=== PATIENT | male | born 1945 | race Caucasian/White ===

== ENCOUNTER 2020-11-21 13:25 | Outpatient (CLI) | payer MEDICARE, OTHER, SELFPAY ==
--- NOTE | ~2020-11-21 | XR_ITS ---
EXAMINATION: XR chest 2V DATE: 11/21/2020 13:47 INDICATION: Cough. TECHNIQUE: Frontal and lateral views of the chest were obtained. COMPARISON: Chest single view 01/23/2012, chest CT 06/29/2016 FINDINGS: The chest demonstrates clear lungs without pneumonia, pleural effusion, or pneumothorax. Th e heart size is normal. IMPRESSION: 1. No acute cardiopulmonary disease. Reviewed, dictated and finalized at location A.
== END 2020-11-21 13:26 | disposition home or self-care (01) ==
PROVIDERS: PCP Family Medicine; Visit Provider Family Medicine
DX: R05 Cough (principal)
CPT/HCPCS: 71046

== ENCOUNTER 2022-04-09 12:19 | Outpatient (CLI) | payer MEDICARE, OTHER, SELFPAY ==
[2022-04-09 13:15] LABS: Anion Gap 11 mmol/L (8-16); Blood Urea Nitrogen 21 mg/dL (9-20); Calcium 9.7 mg/dL (8.4-10.2); Carbon Dioxide 25 mmol/L (22-30); Chloride 105 mmol/L (98-107); Estimated Glomerular Filt Rate 49; Glucose 170 mg/dL (65-110); Potassium 4.3 mmol/L (3.4-5.0); Sodium 141 mmol/L (137-145)
== END 2022-04-09 12:20 | disposition home or self-care (01) ==
LOC: ANHSURGERY 12:29
PROVIDERS: Anesthesiology; PCP Family Medicine; Visit Provider Surgery
DX: Z01.812 Encounter for preprocedural laboratory examination (principal); Z51.81 Encounter for therapeutic drug level monitoring; Z79.899 Other long term (current) drug therapy; I10 Essential (primary) hypertension
CPT/HCPCS: 36415; 80048

== ENCOUNTER 2022-04-11 00:58 | Day surgery (SDC) | payer MEDICARE, OTHER, SELFPAY ==
[2022-04-05 09:26] VITALS: BMI 33.3
--- NOTE | 2022-04-05 09:27 | PCDIET ---
Report to the Outpatient Waiting Room, entrance under the green pavilion located off [facility], at time _0730_ on date _[id number]_. OR Time: _0930_. Time changes happen often and if your time is changed the preop area will call you the afternoon before. - You and your visitor will be asked to self-screen and do not enter if you have any COVID symptoms. - Only one visitor and NO children visitors are allowed at this time. - The patient visitor is requested to leave or wait in car when not with patient due to restrictions. - A mask is required within the hospital. Patients may have clear liquids (water, carbonated beverages, clear teas, apple juice) until 3 hours prior to surgery with a maximum of 20 ounces. - No food from midnight until time of surgery Take the following medications with a SIP of water the morning of surgery: ____None Medications to discontinue per physician None Date to take last dose Please no make-up, nail czech, hairspray, perfume, deodorant, or body powder the day of surgery. No jewelry (including any body piercings) or valuables the day of surgery, leave them at home. Please take a shower or bath the morning of, surgery with Hebiclense, an antibacterial soap. Wear comfortable, loose fitting clothing. - Jewelry must be removed prior to entering the operating room. Rings and piercings that are not removed may be cut off. - The hospital will not accept responsibility for valuables. - Please leave all valuables, including medications, at home the day of surgery. If you are going home after surgery, a licensed o[employer] hazmat company driver must drive you home. - NO public transportation without another adult. - We recommend that an adult stay with you for 24 hours following discharge. - We also recommend that you do not drive, make important decision, drink alcoholic beverages, or take any drugs that were not prescribed by your health care provider for at least 24 hours after your discharge time. Follow any additional instructions given to you from your surgeon. If you or anyone in your household have experienced Covid symptoms in the past week, please notify your surgeon or the nurse liaison at the phone number below for possible testing. Telephone instructions given to __Patient and asked if any additional questions and then verbalized understanding. Patient advised to call surgeon office or pre surgery nurse liaison [phone] if any additional questions.
--- NOTE | 2022-04-06 13:28 | PC.NURSE ---
Report to the Outpatient Waiting Room, entrance under the green pavilion located off [facility], at time _0730_ on date _[id number]_. OR Time: _0930_. Time changes happen often and if your time is changed the preop area will call you the afternoon before. - You and your visitor will be asked to self-screen and do not enter if you have any COVID symptoms. - Only one visitor and NO children visitors are allowed at this time. - The patient visitor is requested to leave or wait in car when not with patient due to restrictions. - A mask is required within the hospital. Patients may have clear liquids (water, carbonated beverages, clear teas, apple juice) until 3 hours prior to surgery with a maximum of 20 ounces. - No food from midnight until time of surgery Take the following medications with a SIP of water the morning of surgery: None Medications to discontinue per physician ___None Date to take last dose Please no make-up, nail lithuanian, hairspray, perfume, deodorant, or body powder the day of surgery. No jewelry (including any body piercings) or valuables the day of surgery, leave them at home. Please take a shower or bath the morning of, surgery with Hebiclense, an antibacterial soap. Wear comfortable, loose fitting clothing. - Jewelry must be removed prior to entering the operating room. Rings and piercings that are not removed may be cut off. - The hospital will not accept responsibility for valuables. - Please leave all valuables, including medications, at home the day of surgery. If you are going home after surgery, a licensed bus driver supervisor must drive you home. - NO public transportation without another adult. - We recommend that an adult stay with you for 24 hours following discharge. - We also recommend that you do not drive, make important decision, drink alcoholic beverages, or take any drugs that were not prescribed by your health care provider for at least 24 hours after your discharge time. Follow any additional instructions given to you from your surgeon. If you or anyone in your household have experienced Covid symptoms in the past week, please notify your surgeon or the nurse liaison at the phone number below for possible testing. Telephone instructions given to _Patient and asked if any additional questions and then verbalized understanding. Patient advised to call surgeon office or pre surgery nurse liaison [phone] if any additional questions.
--- NOTE | 2022-04-10 12:09 | WPDANESEPPF ---
Anes - Initial Pre Proc Eval Procedure: Operation Date: 04/11/22 09:30 Proposed Procedures p Right Inguinal Hernia Repair - Oziel Mcmanus MD Date/Time: 04/10/22 12:09 Surgeon: Oziel Mcmanus MD Pre Op Diagnosis: right inguinal hernia Patient Data Age: 76 Gender: M Height: 1.83 m Weight: 111.4 kg Allergies Allergy/AdvReac Type Severity Reaction Status Date / Time hydrochlorothiazide Allergy Severe Other Verified 04/11/22 07:42 esomeprazole Allergy Unknown Contraindicated Verified 04/11/22 07:42 with Plavix metoprolol Allergy Unknown Unknown Verified 04/11/22 07:42 Home Medications Medication Instructions Recorded Confirmed Type aspirin 325 mg tablet 325 mg PO DAILY 12/08/19 04/11/22 History atorvastatin 40 mg tablet 40 mg PO DAILY 12/08/19 04/11/22 History carvedilol 6.25 mg tablet 6.25 mg PO Q12H 12/08/19 04/11/22 History lisinopril 10 mg tablet 10 mg PO DAILY 12/08/19 04/11/22 History nitroglycerin 0.4 mg sublingual 0.4 mg sublingual Q5M PRN Chest 12/08/19 04/11/22 History tablet Pain sildenafil 25 mg tablet (Viagra) 25 mg PO DAILY PRN Sexual Activity 12/08/19 04/11/22 History spironolactone 25 mg tablet 25 mg PO DAILY 12/08/19 04/11/22 History tramadol 50 mg tablet 50 mg PO Q6H PRN Pain 12/08/19 04/11/22 History cyclobenzaprine 10 mg tablet 10 mg PO TID PRN muscle spasm #30 01/29/22 04/11/22 Rx tabs cholecalciferol (vitamin D3) 25 25 mcg PO DAILY 04/05/22 04/11/22 History mcg (1,000 unit) capsule (Vitamin D3) zinc 10 mg tablet 10 mg PO DAILY 04/05/22 04/11/22 History Patient hx anesthesia problems: none Family hx anesthesia problems: none Results Review: All pre-operative results and documents have been reviewed as part of the pre-operative evaluation. 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 IFG (impaired fasting glucose) Skin cancer Surgical History Surgical History H/O heart artery stent H/O hernia repair 2001 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 Family History Family History Father Family history of lung cancer Diabetes mellitus Hypertension Family history of cardiovascular disease Mother Family history of primary malignant neoplasm of liver Family history of malignant neoplasm Social History Social History Smoking packs per day: 1 Smoking cigarettes per day: 20.0 Years smoked: 10 Smoking pack-years: 10.00 Smoking status: Former smoker Tobacco type: cigarettes Second hand tobacco smoke exposure: No Smoking end date: 04/05/72 Alcohol intake: former Substance use: never Substance use type: does not use Living arrangements: alone Spiritual care concerns: No Anes - Eval Final PreProcedure Day of Procedure 04/10/22 12:09 Patient weight: obese Heart: regular rate and rhythm Lungs: clear to auscultation and normal air movement Airway: Mallampati scale class II Neurological: alert and oriented Last oral intake: >/= 8 hours ASA classification: III Emergent: no Anesthetic plan: proceed Anesthesia type and monitoring: general GIVS and LMA Results Review: All pre-operative results and documents have been reviewed as part of the pre-operative evaluation. Informed Consent: The patient's anesthetic plan and its attendant risks and benefits were d
--- NOTE | 2022-04-10 16:48 | PM.SD2 ---
Same Day Admit/Disch: HPI History of Present Illness Chief complaint: right inguinal hernia Narrative: Lobo Hicks is a 76 year old male who was seen in the office with complaints of left lower quadrant abdominal pain. He had a history of a previous left inguinal hernia repair. When he was examined in the office, he had no left inguinal hernia but did have a reducible right inguinal hernia. He also had a very small umbilical hernia. After discussion, the patient wishes to proceed with right inguinal hernia repair. He is not interested in umbilical hernia repair at this time. No left-sided hernia or other source of his left lower quadrant pain was noted. 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 IFG (impaired fasting glucose) Skin cancer Surgical History Surgical History H/O heart artery stent H/O hernia repair 2001 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 Family History Family History Father Family history of lung cancer Diabetes mellitus Hypertension Family history of cardiovascular disease Mother Family history of primary malignant neoplasm of liver Family history of malignant neoplasm Social History Social History Smoking packs per day: 1 Smoking cigarettes per day: 20.0 Years smoked: 10 Smoking pack-years: 10.00 Smoking status: Former smoker Tobacco type: cigarettes Second hand tobacco smoke exposure: No Smoking end date: 04/05/72 Alcohol intake: former Substance use: never Substance use type: does not use Living arrangements: alone Spiritual care concerns: No Same Day Admit/Disch: Med Pre-admit Medications Home Medications Medication Instructions Recorded Confirmed Type aspirin 325 mg tablet 325 mg PO DAILY 12/08/19 04/11/22 History atorvastatin 40 mg tablet 40 mg PO DAILY 12/08/19 04/11/22 History carvedilol 6.25 mg tablet 6.25 mg PO Q12H 12/08/19 04/11/22 History lisinopril 10 mg tablet 10 mg PO DAILY 12/08/19 04/11/22 History nitroglycerin 0.4 mg sublingual 0.4 mg sublingual Q5M PRN Chest 12/08/19 04/11/22 History tablet Pain sildenafil 25 mg tablet (Viagra) 25 mg PO DAILY PRN Sexual Activity 12/08/19 04/11/22 History spironolactone 25 mg tablet 25 mg PO DAILY 12/08/19 04/11/22 History tramadol 50 mg tablet 50 mg PO Q6H PRN Pain 12/08/19 04/11/22 History cyclobenzaprine 10 mg tablet 10 mg PO TID PRN muscle spasm #30 01/29/22 04/11/22 Rx tabs cholecalciferol (vitamin D3) 25 25 mcg PO DAILY 04/05/22 04/11/22 History mcg (1,000 unit) capsule (Vitamin D3) zinc 10 mg tablet 10 mg PO DAILY 04/05/22 04/11/22 History hydrocodone 5 mg-acetaminophen 325 1 - 2 tablet PO Q6H PRN pain #15 04/11/22 Rx mg tablet tabs ibuprofen 600 mg tablet 600 mg PO Q6H PRN pain #14 tabs 04/11/22 Rx Exam Const: General: comfortable, no acute distress, alert and awake HENMT: Head: normocephalic and atraumatic Mouth: Yes Normal oral and palatal mucosa present Eyes: Conjunctivae: conjunctivae normal Pupils: Equal, round and reactive pupils present EOM: EOMs intact bilaterally Neck: Neck: normal visual inspection, no lymphadenopathy and nontender Resp: Effort & Inspection: normal respiratory effort Auscultation: clear to auscultation bilaterally Cardio: Rate: regular rate Rhythm: regular rhyt
--- NOTE | 2022-04-11 07:51 | WPDHPUPDATE1 ---
History and Physical Update Update Date/Time: 04/11/22 07:51 History and Physical has been reviewed, including an updated exam of the patient. There are NO changes in the patient's condition. Risks, benefits, and alternatives have been discussed and questions answered. Patient agrees to proceed with procedure.
[2022-04-11 07:52] VITALS: BP 152/82; PULSE 77; RESP 16; TEMP 36.6; O2SAT 97
[2022-04-11] MEDS: LACTATED RINGERS 1,000 ML 30 ML IV CONT ×3 (08:00→12:09)
[2022-04-11] MEDS: ACETAMINOPHEN 500 MG TABLET 1000 MG PO (08:07)
[2022-04-11] MEDS: KETOROLAC 15 MG/ML VIAL (*BKC) IV PUSH (08:11)
[2022-04-11] MEDS: ceFAZolin 2 GM/D5W 50 ML 2 GM/50 ML BAG IVPB (09:41)
[2022-04-11] MEDS: BUPIVACAINE/EPINEPHRINE 0.25% 50 ML VIAL INFILTRATE (10:58)
[2022-04-11 11:15] VITALS: BP 131/72; PULSE 80; RESP 16; O2SAT 98
[2022-04-11 11:18] LABS: Glucose Point of Care 132 mg/dl (65-105)
--- NOTE | 2022-04-11 11:26 | W.PM.PROC2 ---
Procedure Note - Detailed Date of Procedure 04/11/22 Pre-op Diagnosis right inguinal hernia Post-op Diagnosis Same Procedure Performed Right inguinal hernia repair with PerFix Light large plug and patch Surgeon Oziel Mcmanus MD Magazine Publisher Maggy OCONNOR Anesthesia General, Local (0.25% Marcaine with epinephrine) and Other (Xaracoll) Indications Patient was seen in the office for some left lower quadrant pain. He had a previous left inguinal hernia. His abdominal exam and left inguinal exam was negative. However he was incidentally found to have a right inguinal hernia. After discussion, he is taken to surgery now for right inguinal hernia repair. Findings Showed a medially located direct right inguinal hernia Description of Procedure The patient was taken to surgery and anesthesia was introduced. The right groin and genitalia were prepped and draped. The proposed incision was marked on the skin in the right inguinal region. Local was infiltrated into the skin and the deeper subcutaneous tissues. Incision was then made dissection carried down through the subcutaneous. Dissection was carried through Lamont's fascia and down to the external oblique aponeurosis. The aponeurosis was exposed as was the external ring. Additional local was infiltrated deep to the aponeurosis in the area of the inguinal canal and its contents. The aponeurosis was then opened laterally and extended medially through the external ring. The leaves of the aponeurosis were carefully dissected free from the inguinal canal contents. We then mobilized the cord medially on a Lutz drain. The cord was further mobilized back to the internal ring. Some lipomatous tissue was dissected free from the cord and discarded. I looked carefully in the spermatic cord area and no indirect hernia was found. There was a medially located fairly large direct hernia. This was carefully dissected free from the spermatic cord as well. I dissected around the direct hernia and exposed the neck of the hernia. I then used the cautery to score circumferentially around the neck of the hernia through the transversalis fascia. I then dunked the hernia into the retroperitoneum. A large PerFix Light plug was chosen. It was placed in the defect. The edges were sutured to the transversalis fascia in interrupted fashion with 3-0 Vicryl suture. I then closed the hernia defect as well with 3-0 Vicryl suture incorporating the mesh with the closure. The patch was then cut to the appropriate size and placed over the inguinal canal floor. The lateral leaves were passed beyond the cord. I placed a couple of suture medially to secure the mesh. These were 3-0 Vicryl suture as well. All looked good. I infiltrated additional local at this time. The 1st piece of Xaracoll was then laid over the patch. The cord and ilioinguinal nerve were then laid over the Xaracoll. The ilioinguinal nerve had been left attached to the cord and carefully preserved through the surgery. I then closed the external oblique aponeurosis with interrupted 3-0 Vicryl suture. A 2nd pieces Xaracoll was laid over the aponeurosis. Lamont's fascia was closed with interrupted 3-0 Vicryl suture. The last pieces Xaracoll was then placed in the subcutaneous. The skin was then closed with interrupted subcuticular 4-0 Vicryl skin suture. The wound was dressed with Exofin surgical adhesive. The patient was awakened and taken to recovery in good condition. Sponge and needle counts were correct x2. Estimated Blood Loss -5.0 Drains No Packing No Pathology None sent Complications No immediate complications Condition Stable Disposition Same day [facility] Billing Surgery - Charge Forward: Surgery Billing (Right inguinal hernia repair)
[2022-04-11 11:45] VITALS: BP 125/76; PULSE 66; RESP 16
[2022-04-11 12:15] VITALS: BP 121/67; PULSE 62; RESP 20
[2022-04-11 12:45] VITALS: BP 133/69; PULSE 61; RESP 20
[2022-04-11 13:15] VITALS: BP 141/72; PULSE 59; RESP 20
== END 2022-04-11 13:27 | disposition home or self-care (01) ==
PROVIDERS: PCP Family Medicine; Visit Provider Surgery
PROC: (CPT 49505; principal; 2022-04-11 09:30)
DX: K40.90 Unilateral inguinal hernia, without obstruction or gangrene, not specified as recurrent (principal); I25.10 Atherosclerotic heart disease of native coronary artery without angina pectoris; I13.10 Hypertensive heart 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, with stage 1 through stage 4 chronic kidney disease, or unspecified chronic kidney disease; E11.22 Type 2 diabetes mellitus with diabetic chronic kidney disease; N18.30 Chronic kidney disease, stage 3 unspecified; E78.5 Hyperlipidemia, unspecified; Z79.82 Long term (current) use of aspirin; Z95.5 Presence of coronary angioplasty implant and graft; Z87.891 Personal history of nicotine dependence; E66.9 Obesity, unspecified; Z68.33 Body mass index [BMI] 33.0-33.9, adult
CPT/HCPCS: 49505; 82948; A9270; C1781; J0690; J1885; J2704; J3010; J7120

== ENCOUNTER 2022-09-04 08:02 | Outpatient (CLI) | payer MEDICARE, OTHER, SELFPAY ==
--- NOTE | ~2022-09-04 | US_ITS ---
EXAMINATION: US aorta [facility] scr[facility] DATE: 09/04/2022 08:32 INDICATION: Encounter for screening for cardiovascular disorder. TECHNIQUE: Grayscale, color Doppler, and pulsed Doppler images of the aorta and common iliac arteries were obtained. COMPARISON: CT abdomen and pelvis 05/23/2014 FINDINGS: The aorta is normal in caliber. The right common iliac artery is normal in caliber. The left common i liac artery is normal in caliber. IMPRESSION: 1. No abdominal aortic aneurysm. Reviewed, dictated and finalized at location A. [employer] SUPERINTENDENT
== END 2022-09-04 08:03 | disposition home or self-care (01) ==
PROVIDERS: PCP Family Medicine; Visit Provider Family Medicine
DX: Z13.6 Encounter for screening for cardiovascular disorders (principal)
CPT/HCPCS: 76706

== ENCOUNTER 2022-12-05 11:08 | Emergency (ER) | payer MEDICARE, OTHER, SELFPAY ==
[2022-12-05] VITALS (18 sets, daily range): BP systolic 121–166; BP diastolic 68–81; PULSE 63–77; RESP 12–20; TEMP 36.8; O2SAT 94–99
--- NOTE | ~2022-12-05 | XR_ITS ---
EXAMINATION: XR chest 1V portable 12/05/2022 11:50 INDICATION: Chest pain PROCEDURE: AP portable chest COMPARISON: 11/21/2020 FINDINGS: The lungs are clear. Right costophrenic recess is excluded. The cardiomediastinal silhouett e is within normal limits. There are no pleural effusions. There is no pneumothorax suspected. IMPRESSION: 1: NO ACUTE CARDIOPULMONARY DISEASE. Reviewed, dictated and finalized at location B.
--- NOTE | 2022-12-05 11:09 | ECG_ITS ---
Measurements Intervals [place] Rate: 71 P: 23 GA: 210 QRS: -25 QRSD: 119 T: 69 QT: 360 QTc: 392 Interpretive Statements SINUS RHYTHM WITH FIRST DEGREE AV BLOCK INTRAVENTRICULAR CONDUCTION DELAY CANNOT RULE OUT SEPTAL INFARCT, AGE INDETERMINATE BORDERLINE ECG NO PREVIOUS ECG AVAILABLE FOR COMPARISON Electronically Signed On 12-05-2022 11:36:50 CDT by Fab Tripathi D.O.
[2022-12-05 11:25] LABS: Basophils Absolute Auto 0.1 K/mm3 (0.0-0.1); Basophils Percent Auto 0.8 % (0.2-1.2); Eosinophils Absolute Auto 0.2 K/mm3 (0-0.3); Eosinophils Percent Auto 2.9 % (0-4.4); Hematocrit 42.2 % (42.0-52.0); Hemoglobin 13.7 g/dL (14.0-18.0); Immature Granulocyte Absolute 0.01 K/mm3 (0.00-0.031); Immature Granulocyte Percent A 0.2 % (0-0.5); Lymphocytes Percent Auto 20.1 % (18.3-44.2); Mean Corpuscular HGB Conc 32.5 g/dl (32-36); Mean Corpuscular Volume 92.3 fl (80-100); Mean Platelet Volume 10.9 fl (7.4-10.4); Monocytes Absolute Auto 0.7 K/mm3 (0.1-0.6); Neutrophils Absolute Auto 4.2 K/mm3 (1.3-6.7); Platelet Count Result 233 k/mm3 (150-375); Red Blood Count 4.57 M/mm3 (4.6-6.20); Red Cell Distribution Width 13.2 % (11.5-14.5); White Blood Count 6.5 K/mm3 (4.5-10.0)
[2022-12-05 11:34] LABS: Prothrombin Time 13.7 Seconds (11.1-14.7)
[2022-12-05 11:36] LABS: Partial Thromboplastin Time 32.9 SECONDS (22.3-36.8)
[2022-12-05 11:38] LABS: Alanine Aminotransferase 38 U/L (6-50); Albumin Level 4.3 g/dL (3.5-5.1); Alkaline Phosphatase 72 U/L (38-126); Anion Gap 6 mmol/L (8-16); Aspartate Amino Transferase 33 U/L (17-59); Bilirubin,Total 0.6 mg/dL (0.2-1.3); Blood Urea Nitrogen 38 mg/dL (9-20); Carbon Dioxide 26 mmol/L (22-30); Chloride 105 mmol/L (98-107); Estimated Glomerular Filt Rate 45; Glucose 121 mg/dL (65-110); Lipase 77 U/L (23-300); Sodium 137 mmol/L (137-145)
[2022-12-05 11:49] LABS: Troponin I < 0.012 ng/mL (0.000-0.034)
--- NOTE | 2022-12-05 12:21 | ED.CHESTPAIN ---
HPI - Chest Pain General Chief Complaint: Chest Pain Stated Complaint: having a heart attack Time Seen by Provider: 12/05/22 12:01 History of Present Illness HPI narrative: Patient is a 77-year-old male with a history of CAD, hypertension, hyperlipidemia presenting with chest and shoulder pain. Patient states that since last night he has had right-sided chest pain that goes into his right shoulder, the right side of his neck, and his right arm. States that the chest pain is right over his right pec and is worsened with taking a big breath. States that is worsened with shoulder abduction. He also complains of right-sided neck soreness. Reports chronic dyspnea and intermittent paresthesias related to history of neuropathy. Denies lightheadedness, fevers or chills, weakness, speech or vision changes, palpitations, left-sided chest pain, abdominal pain, leg swelling, nausea or vomiting. Related Data Home Medications Medication Instructions Recorded Confirmed aspirin 325 mg tablet 325 mg PO DAILY 12/08/19 08/06/22 atorvastatin 40 mg tablet 40 mg PO DAILY 12/08/19 08/06/22 carvedilol 6.25 mg tablet 6.25 mg PO Q12H 12/08/19 08/06/22 nitroglycerin 0.4 mg sublingual 0.4 mg sublingual Q5M PRN Chest 12/08/19 08/06/22 tablet Pain spironolactone 25 mg tablet 25 mg PO DAILY 12/08/19 08/06/22 cholecalciferol (vitamin D3) 25 25 mcg PO DAILY 04/05/22 08/06/22 mcg (1,000 unit) capsule (Vitamin D3) zinc 10 mg tablet 10 mg PO DAILY 04/05/22 08/06/22 lisinopril 5 mg tablet 5 mg PO HS 05/30/22 08/06/22 Allergies Allergy/AdvReac Type Severity Reaction Status Date / Time hydrochlorothiazide Allergy Severe eye pain Verified 08/06/22 13:06 and blurred vision metoprolol Allergy Unknown Unknown Verified 08/06/22 13:06 esomeprazole AdvReac Unknown Contraindicated Verified 08/06/22 13:06 with Plavix Review of Systems Review of Systems: All systems reviewed & are unremarkable except as noted in HPI and below PMFSH Past Medical History Medical History Arthritis of left knee Atherosclerotic heart disease of [place] coronary artery without angina pectoris BMI 36.0-36.9,adult Cataract Chronic kidney disease, stage 3 unspecified Chronic kidney disease, stage III (moderate) CMC arthritis, thumb, degenerative Bilateral Coronary artery disease Diabetes pt noted last A1c was 6.8 Dyslipidemia Heart disease Hernia Hypertensive heart 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 IFG (impaired fasting glucose) Skin cancer Surgical History Surgical History H/O heart artery stent H/O hernia repair 2001 H/O right inguinal hernia repair 04/11/22 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 Family History Family History Father Family history of lung cancer Diabetes mellitus Hypertension Family history of cardiovascular disease Mother Family history of primary malignant neoplasm of liver Family history of malignant neoplasm Social History Social History Smoking packs per day: 1 Smoking cigarettes per day: 20.0 Years smoked: 8 Smoking pack-years: 8.00 Smoking status: Former smoker Tobacco type: cigarettes Second hand tobacco smoke exposure: No Smoking end date: 01/20/72 Alcohol intake: former Alcohol use details: 1968 Substance use: never Substance use type: does not use Living arrangements: alone Occupation/Education: retired Spiritual care concerns: No Exam Narrative: GENERAL: Well-appearing, well-nourished, and in no acute distress. HEAD: Normocephalic, atraumatic. EYES: PERRLA and EOMI. ENT: Nares clear, no rhinorrhea or epistaxis. Mucous membranes moist. NECK: Supple. No midline tenderness; +R sided paraspinal tenderness into R trap
[2022-12-05 14:23] LABS: Troponin I < 0.012 ng/mL (0.000-0.034)
== END 2022-12-05 15:00 | disposition home or self-care (01) ==
PROVIDERS: Emergency Medicine; Emergency Provider Emergency Medicine; PCP Specialist
DX: R07.89 Other chest pain (principal); M25.511 Pain in right shoulder; I13.10 Hypertensive heart 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, with stage 1 through stage 4 chronic kidney disease, or unspecified chronic kidney disease; E11.22 Type 2 diabetes mellitus with diabetic chronic kidney disease; N18.30 Chronic kidney disease, stage 3 unspecified; I25.10 Atherosclerotic heart disease of native coronary artery without angina pectoris; E78.5 Hyperlipidemia, unspecified; Z87.891 Personal history of nicotine dependence
CPT/HCPCS: 36415; 71045; 80053; 83690; 84484; 85025; 85610; 85730; 93005; 99284

== ENCOUNTER 2023-01-11 12:22 | Emergency (ER) | payer MEDICARE, OTHER, SELFPAY ==
--- NOTE | ~2023-01-11 | CT_ITS ---
EXAMINATION: CT abdomen pelvis wo con DATE: 01/11/2023 13:22 INDICATION: Generalized abdominal pain TECHNIQUE: Computed tomography (CT) of the abdomen and pelvis was performed without intravenous contr ast. The dose-length product was 1384.71 mGy-cm. Automated exposure control and iterative reconstruct ion technique were employed. COMPARISON: CT dated 05/23/2015. FINDINGS: There is dependent atelectasis. Stable 5 mm right lower lobe nodule, likely benign. Heart s ize normal. No significant pleural or pericardial effusion. Colonic diverticulosis without evidence f or diverticulitis. Small subcentimeter hypodensity of the liver, most likely benign. The spleen, pancreas are unremarkab le. 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 Gallbladder is present. There is a 1.4 cm low-density lesion of the left adrenal gland, also lik [place] benign adenoma. Nonobstructive bowel gas pattern. Small fat-containing umbilical hernia. The mode rate osteoarthritis of the hips. No free air or free fluid. IMPRESSION: 1. No acute abdominal abnormality. Reviewed, dictated and finalized at location []
[2023-01-11 12:23] VITALS: BP 145/81; PULSE 72; RESP 16; TEMP 36.5; O2SAT 97
--- NOTE | 2023-01-11 12:44 | ED.GIBLEED ---
HPI - GI Bleed General Chief complaint: GI Bleed Stated complaint: blood in stool Time Seen by Provider: 01/11/23 12:33 History of Present Illness HPI Narrative: 77-year-old male presents to the emergency room for complaints of rectal bleeding. He had 1 episode of red bloody stool yesterday evening. He took some bowel prep in anticipation of needing a colonoscopy. He had brown liquid stool this morning x1. No further bleeding. He has noticed a dark spot on his stools over the past couple of weeks. He denies having any abdominal pain. He says he called his primary care provider and they told him he should come to the ER for colonoscopy. He does report having a family history of colon cancer and is very worried about this. Last colonoscopy was 15 years ago. Related Data Home Medications Medication Instructions Recorded Confirmed aspirin 325 mg tablet 325 mg PO DAILY 12/08/19 08/06/22 atorvastatin 40 mg tablet 40 mg PO DAILY 12/08/19 08/06/22 carvedilol 6.25 mg tablet 6.25 mg PO Q12H 12/08/19 08/06/22 nitroglycerin 0.4 mg sublingual 0.4 mg sublingual Q5M PRN Chest 12/08/19 08/06/22 tablet Pain spironolactone 25 mg tablet 25 mg PO DAILY 12/08/19 08/06/22 cholecalciferol (vitamin D3) 25 25 mcg PO DAILY 04/05/22 08/06/22 mcg (1,000 unit) capsule (Vitamin D3) zinc 10 mg tablet 10 mg PO DAILY 04/05/22 08/06/22 lisinopril 5 mg tablet 5 mg PO HS 05/30/22 08/06/22 Allergies Allergy/AdvReac Type Severity Reaction Status Date / Time hydrochlorothiazide Allergy Severe eye pain Verified 08/06/22 13:06 and blurred vision metoprolol Allergy Unknown Unknown Verified 08/06/22 13:06 esomeprazole AdvReac Unknown Contraindicated Verified 08/06/22 13:06 with Plavix Review of Systems Review of Systems: CONSTITUTIONAL: Denies fever, chills, or sweats. EYES: Denies visual changes, redness, or discharge. ENT: Denies rhinorrhea, congestion, sore throat, or otalgia. CARDIOVASCULAR: Denies chest pain, palpitations, or edema. RESPIRATORY: Denies cough or dyspnea. GASTROINTESTINAL: as per HPI GENITOURINARY: Denies dysuria or hematuria. SKIN: Denies rash or itching. MUSCULOSKELETAL: Denies back pain, joint pain, or myalgia. NEUROLOGIC: Denies headache, numbness, dizziness, or weakness. PSYCHIATRIC: Denies anxiety or depression. 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 IFG (impaired fasting glucose) Skin cancer Surgical History Surgical History H/O heart artery stent H/O hernia repair 2001 H/O right inguinal hernia repair 04/11/22 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 Family History Family History Father Family history of lung cancer Diabetes mellitus Hypertension Family history of cardiovascular disease Mother Family history of primary malignant neoplasm of liver Family history of malignant neoplasm Social History Social History Smoking packs per day: 1 Smoking cigarettes per day: 20.0 Years smoked: 8 Smoking pack-years: 8.00 Smoking status: Former smoker Tobacco type: cigarettes Second hand tobacco smoke exposure: No Smoking end date: 01/20/72 Alcohol intake: former Alcohol use details: 1969 Substance use: never Substance use type: does not use Living arrangements: alone Occupation/Educatio
[2023-01-11 12:58] LABS: Basophils Percent Auto 0.5 % (0.2-1.2); Eosinophils Absolute Auto 0.2 K/mm3 (0-0.3); Eosinophils Percent Auto 2.4 % (0-4.4); Hematocrit 44.3 % (42.0-52.0); Hemoglobin 14.7 g/dL (14.0-18.0); Immature Granulocyte Absolute 0.01 K/mm3 (0.00-0.031); Immature Granulocyte Percent A 0.1 % (0-0.5); Lymphocytes Absolute Auto 1.25 K/mm3 (0.9-3.2); Lymphocytes Percent Auto 16.9 % (18.3-44.2); Mean Corpuscular HGB Conc 33.2 g/dl (32-36); Mean Corpuscular Hemoglobin 30.2 pg (26-34); Mean Corpuscular Volume 91.2 fl (80-100); Mean Platelet Volume 11.7 fl (7.4-10.4); Monocytes Absolute Auto 0.7 K/mm3 (0.1-0.6); Neutrophils Absolute Auto 5.2 K/mm3 (1.3-6.7); Neutrophils Percent Auto 70.1 % (45.5-73.1); Platelet Count Result 231 k/mm3 (150-375); Red Blood Count 4.86 M/mm3 (4.6-6.20); Red Cell Distribution Width 12.8 % (11.5-14.5); White Blood Count 7.4 K/mm3 (4.5-10.0)
[2023-01-11 13:11] LABS: Alanine Aminotransferase 52 U/L (6-50); Albumin Level 4.5 g/dL (3.5-5.1); Alkaline Phosphatase 79 U/L (38-126); Anion Gap 7 mmol/L (8-16); Aspartate Amino Transferase 35 U/L (17-59); Blood Urea Nitrogen 26 mg/dL (9-20); Calcium 9.9 mg/dL (8.4-10.2); Carbon Dioxide 29 mmol/L (22-30); Chloride 101 mmol/L (98-107); Estimated CRCL calculation 48 ml/min; Estimated Glomerular Filt Rate 45; Glucose 106 mg/dL (65-110); Lipase 75 U/L (23-300); Magnesium 2.3 mg/dL (1.6-2.3); Potassium 4.7 mmol/L (3.4-5.0); Sodium 137 mmol/L (137-145)
== END 2023-01-11 15:00 | disposition home or self-care (01) ==
PROVIDERS: Emergency Provider Nurse Practitioner Family; PCP Family Medicine
DX: K62.5 Hemorrhage of anus and rectum (principal); Z87.891 Personal history of nicotine dependence; Z79.82 Long term (current) use of aspirin; N18.30 Chronic kidney disease, stage 3 unspecified; I25.10 Atherosclerotic heart disease of native coronary artery without angina pectoris; E11.22 Type 2 diabetes mellitus with diabetic chronic kidney disease; I12.9 Hypertensive chronic kidney disease with stage 1 through stage 4 chronic kidney disease, or unspecified chronic kidney disease
CPT/HCPCS: 36415; 74176; 80053; 83690; 83735; 85025; 99284

== ENCOUNTER 2023-02-13 04:21 | Day surgery (SDC) | payer MEDICARE, OTHER, SELFPAY ==
[2023-01-31 14:31] VITALS: BMI 33.5
[2023-02-13 11:16] VITALS: BP 106/63; PULSE 92; RESP 20; TEMP 35.8; O2SAT 97; BMI 32.3
--- NOTE | 2023-02-13 11:16 | PM.HPGS ---
History of Present Illness History of Present Illness Consent: Risks, benefits, and alternatives have been discussed and questions answered. Patient agrees to proceed with procedure. Chief complaint: hemorrhage anus and rectum, pers. hx colon polyps Narrative: Lobo Hicks is a 77 year old male with rectal bleeding, last colonoscopy 15 years ago with small polyp Review of Systems Constitutional: Constitutional: Denies headache(s) and Denies weakness Eyes: Eyes: Denies blurry vision ENT: Reports Normal hearing present, Denies headache(s) and Denies neck pain Cardiovascular: Cardiovascular: Denies chest pain and Denies dyspnea Respiratory: Respiratory: Denies dyspnea Gastrointestinal: Gastrointestinal: Reports no additional gastrointestinal complaints Genitourinary: Genitourinary: Denies dysuria Musculoskeletal: Musculoskeletal: Denies neck pain Integumentary/Breasts: Skin/Breast: Denies dry skin Neurologic: Reports Normal hearing present, Denies headache(s) and Denies weakness Psychiatric: Psychiatric: Denies anxiety Endocrine: Endocrine: Denies change in body appearance Hematologic/Lymphatic: Hematologic/Lymphatic: Denies easy bleeding Allergic/Immunologic: Allergic/Immunologic: Denies urticaria [facility] Past Medical History Medical History (Updated 02/13/23 @ 11:17 by Richard Osorio MD) Arthritis of left knee Atherosclerotic heart disease of [place] coronary artery without angina pectoris BMI 36.0-36.9,adult Cataract Chronic kidney disease, stage 3 unspecified Chronic kidney disease, stage III (moderate) CMC arthritis, thumb, degenerative Bilateral Coronary artery disease Diabetes pt noted last A1c was 6.8 Dyslipidemia Heart disease Hernia Hypertensive heart 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 IFG (impaired fasting glucose) Rectal bleeding Skin cancer Surgical History Surgical History H/O heart artery stent H/O hernia repair 2001 H/O right inguinal hernia repair 04/11/22 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 Family History Family History Father Family history of lung cancer Diabetes mellitus Hypertension Family history of cardiovascular disease Mother Family history of primary malignant neoplasm of liver Family history of malignant neoplasm Social History Social History Smoking packs per day: 1 Smoking cigarettes per day: 20.0 Years smoked: 8 Smoking pack-years: 8.00 Smoking status: Former smoker Tobacco type: cigarettes Second hand tobacco smoke exposure: No Smoking end date: 01/20/72 Alcohol intake: former Alcohol use details: 1968 Substance use: never Substance use type: does not use Living arrangements: alone Occupation/Education: retired Spiritual care concerns: No Meds Home Medications and Allergies Home Medications Medication Instructions Recorded Confirmed Type aspirin 325 mg tablet 325 mg PO DAILY 12/08/19 02/04/23 History atorvastatin 40 mg tablet 40 mg PO DAILY 12/08/19 02/04/23 History carvedilol 6.25 mg tablet 6.25 mg PO Q12H 12/08/19 02/04/23 History nitroglycerin 0.4 mg sublingual 0.4 mg sublingual Q5M PRN Chest 12/08/19 02/04/23 History tablet Pain spironolactone 25 mg tablet 25 mg PO DAILY 12/08/19 02/04/23 History cholecalciferol (vitamin D3) 25 25 mcg PO DAILY 04/05/22 02/04/23 History mcg (1,000 unit) capsule (Vitamin D3) zinc 10 mg tablet 10 mg PO DAILY 04/05/22 02/04/23 History lisinopril 5 mg tablet 5 mg PO HS 05/30/22 02/04/23 History citalopram 20 mg tablet 20 mg PO HS #90 tabs 08/06/22 02/04/23 Rx cyclobenzaprine 10 mg tablet 10 mg PO TID PRN muscle spasm #15 02/04/23 02/04/23 Rx tabs tramadol 50 mg tablet 50 mg PO Q6H PRN Pain #30 tabs 02/04/23 02/04/23 Rx Allergies Allergy/AdvReac Ty
[2023-02-13] MEDS: LACTATED RINGERS 1,000 ML 150 ML IV CONT (11:25)
--- NOTE | 2023-02-13 11:28 | SUR.PREOP ---
Pt has hx of rheumatic fever as child. No antibiotics needed per Dr. Alan.
[2023-02-13 11:49] VITALS: BP 81/49; PULSE 78; RESP 25; O2SAT 91
[2023-02-13 11:59] VITALS: BP 91/56; PULSE 74; RESP 26; O2SAT 93
[2023-02-13 12:09] VITALS: BP 97/63; PULSE 73; RESP 23; O2SAT 94
== END 2023-02-13 12:14 | disposition home or self-care (01) ==
PROVIDERS: PCP Family Medicine; Visit Provider Internal Medicine Gastroenterology
PROC: 0DJD8ZZ Inspection of Lower Intestinal Tract, Via Natural or Artificial Opening Endoscopic (ICD-10-PCS; CPT 45378; principal; 2023-02-13 12:30)
DX: Z12.11 Encounter for screening for malignant neoplasm of colon (principal); K57.30 Diverticulosis of large intestine without perforation or abscess without bleeding; K64.8 Other hemorrhoids; Z86.010 Personal history of colon polyps; I13.10 Hypertensive heart 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, with stage 1 through stage 4 chronic kidney disease, or unspecified chronic kidney disease; E11.22 Type 2 diabetes mellitus with diabetic chronic kidney disease; N18.30 Chronic kidney disease, stage 3 unspecified; I25.10 Atherosclerotic heart disease of native coronary artery without angina pectoris; E78.5 Hyperlipidemia, unspecified; Z95.5 Presence of coronary angioplasty implant and graft; Z87.891 Personal history of nicotine dependence; Z79.82 Long term (current) use of aspirin
CPT/HCPCS: G0105; J2001; J2704; J7120